=== PATIENT | male | born 1950 | race Caucasian/White ===

== ENCOUNTER 2016-11-20 11:21 | Emergency (ER) | payer MEDICARE, OTHER ==
[~2016-11-20] VITALS: Ht 172.7 cm; Wt 100.5 kg
[~2016-11-20 11:21] MED LIST: AMOXICILLIN 8751 TAB PO; ASPIRIN 81M81 MG/TA2 PO; CARDI-OMEGA1000 MG PO; CELEXA40 MG PO; COZAAR100 MG PO; CRESTOR40 MG PO; DESYREL 100MG100 MG PO; DESYREL 50MG50 MG PO; DOXYCYCLINE 10100 MG PO; DUO-KAPS1 CAP PO; EFFEXOR 75M75 MG/TAB PO; GLUCOPHAGE1000 MG PO; HCTZ 25MG TAB25 MG PO; LANTUS SOLOS100 U/ML SQ; LANTUS100 U/ML SC; LORTAB 5/500 501 TAB PO; NIACIN500 M3 PO; NIACIN500 MG PO; NORCO 325 MG-51 TAB PO; NORCO 325 MG-7.1 TAB; NORVASC 10MG10 MG PO; NOVOLOG FLEX100 U/ML SQ; ONE DAILY MEN'S1 TAB PO; TYLENOL 325MG325 MG PO; ULTRAM 50MG TAB50 MG PO; ZOCOR 80MG80 MG PO
[2016-11-20 11:25] VITALS: BP 163/99; PULSE 96; TEMP 97.9
[2016-11-20] MEDS ORDERED: NORCO 325 MG-51 TAB PO (11:57)
[2016-11-20] MEDS ORDERED: CEPHALEXIN500 M1 PO (11:57)
== END 2016-11-20 12:20 | disposition home or self-care (01) ==
LOC: COL.ER 11:21
DX: T20.23XA Burn of second degree of chin, initial encounter (principal); T20.111A Burn of first degree of right ear [any part, except ear drum], initial encounter; T20.12XA Burn of first degree of lip(s), initial encounter; X03.0XXA Exposure to flames in controlled fire, not in building or structure, initial encounter; Z23 Encounter for immunization; E11.9 Type 2 diabetes mellitus without complications; Z79.4 Long term (current) use of insulin; I10 Essential (primary) hypertension

== ENCOUNTER 2018-05-29 13:14 | Emergency (ER) | payer MEDICARE, OTHER ==
[~2018-05-29] VITALS: Ht 170.2 cm; Wt 90.0 kg
[~2018-05-29 13:14] MED LIST changes: +CEPHALEXIN500 M1 PO
[2018-05-29 13:19] VITALS: TEMP 98.9
[2018-05-29] MEDS ORDERED: CVS GLUCOSE BIT1 CTB PO (14:12)
[2018-05-29] MEDS ORDERED: MOBIC 7.5MG7.5 MG PO (14:14)
[2018-05-29 14:15] LABS: BASO # 0.1 (0.0-0.2); BASO % 0.7 % (0.0-2.0); EOS # 0.1 (0.0-0.7); EOS % 1.7 % (0-4.0); GRAN # 5.9 (1.4-6.5); GRAN % 70.4 % (42.2-75.2); HEMATOCRIT 42.6 % (42.0-52.0); HEMOGLOBIN 15.5 g/dl (13.5-18.0); LYMPH # 1.8 (1.2-3.4); LYMPH % 21.5 % (20.0-51.0); MEAN CELL VOLUME 83 fl (80.0-100.0); MEAN CORPUSCULAR HEMOGLOBIN 30 pg (27.0-31.0); MEAN CORPUSCULAR HGB CONC 36 g/dl (33.0-37.0); MEAN PLATELET VOLUME 11.9 fl (7.4-10.4); MONO # 0.5 (0.1-0.6); MONO % 5.5 % (1.7-9.3); PLATELET COUNT 148 K/mm3 (130-400); RED BLOOD COUNT 5.14 M/mm3 (4.20-5.60); REDCELL DISTRIBUTION WIDTH-CV 12.1 % (11.5-14.5)
[2018-05-29] MEDS ORDERED: ROBAXIN 50500 MG/TAB PO (14:15)
[2018-05-29] MEDS ORDERED: LEXAPRO20 MG PO (14:16)
[2018-05-29 14:29] LABS: ALANINE AMINOTRANSFERASE 38 U/L (21-72); ALBUMIN 3.9 gm/dL (3.5-5.0); ALKALINE PHOSPHATASE 83 U/L (50-136); ANION GAP 13 mmol/L (7-16); AST,SGOT 27 U/L (15-37); BILIRUBIN,TOTAL 1.9 mg/dL (0.0-1.0); BLOOD UREA NITROGEN 19 mg/dL (9-20); CALCIUM 9.1 mg/dL (8.4-10.2); CARBON DIOXIDE 21 mmol/L (22-30); CHLORIDE 97 mmol/L (98-107); GLUCOSE 340 mg/dL (74-106); MAGNESIUM 1.9 mg/dL (1.6-2.3); PHOSPHOROUS 2.7 mg/dL (2.5-4.5); POTASSIUM 3.9 mmol/L (3.4-5.0); SODIUM 131 mmol/L (137-145); TOTAL PROTEIN 7.1 gm/dL (6.4-8.2)
[2018-05-29 14:35] LABS: COLLECTION METHOD CLEAN CATCH
[2018-05-29 14:41] LABS: TROPONIN-I < 0.012 ng/mL (0.000-0.034)
[2018-05-29 14:52] LABS: PH 5 (5-8); SQUAMOUS EPITHELIAL 0-2 /hpf; URINE APPEARANCE Clear; URINE BACTERIA None Seen /hpf; URINE BILIRUBIN Negative (NEGATIVE); URINE BLOOD Negative (NEGATIVE); URINE COLOR Yellow; URINE GLUCOSE 3+ (NEGATIVE); URINE KETONE 1+ (NEGATIVE); URINE LEUKOCYTE ESTERASE Negative (NEGATIVE); URINE NITRATE Negative (NEGATIVE); URINE PROTEIN(semi-quant) Negative (NEGATIVE); URINE RBC None Seen /hpf; URINE UROBILINOGEN Negative (NEGATIVE)
[2018-05-29 14:54] LABS: PROTHROMBIN TIME 11.8 SECONDS (9.7-12.8)
[2018-05-29 17:43] VITALS: BP 105/76; PULSE 72
== END 2018-05-29 17:43 | disposition home or self-care (01) ==
LOC: COL.ER 13:14
PROVIDERS: Emergency Medicine
DX: E11.65 Type 2 diabetes mellitus with hyperglycemia (principal); E11.41 Type 2 diabetes mellitus with diabetic mononeuropathy; G56.21 Lesion of ulnar nerve, right upper limb; I10 Essential (primary) hypertension; R51 Headache; F41.9 Anxiety disorder, unspecified; F32.9 Major depressive disorder, single episode, unspecified; K21.9 Gastro-esophageal reflux disease without esophagitis; F17.210 Nicotine dependence, cigarettes, uncomplicated; Z79.4 Long term (current) use of insulin; Z79.82 Long term (current) use of aspirin
CPT/HCPCS: J1815; J1885; J7030